=== PATIENT | female | born 1940 ===

== ENCOUNTER 2017-06-04 06:29 | Day surgery (SDC) | payer MEDICARE, BC ==
[2017-05-28 11:18] VITALS: BMI 31.1
[2017-06-04] MEDS ORDERED: Propofol 10 mg/ml Inj (20 ML) ONE ×2 (07:53→08:21)
[2017-06-04] MEDS ORDERED: Sodium Chloride 0.9% 1,000 ML IV SCH (09:00)
[2017-06-04 09:53] VITALS: BP 147/71; PULSE 75; RESP 20; TEMP 97.7; O2SAT 95
== END 2017-06-04 10:35 | disposition home or self-care (01) ==
LOC: ENDO 06:29
PROVIDERS: ATTEND Specialist
DX: K62.1 Rectal polyp (principal); D12.5 Benign neoplasm of sigmoid colon; K57.30 Diverticulosis of large intestine without perforation or abscess without bleeding; K64.8 Other hemorrhoids; E11.9 Type 2 diabetes mellitus without complications; I10 Essential (primary) hypertension; E78.5 Hyperlipidemia, unspecified; Z86.73 Personal history of transient ischemic attack (TIA), and cerebral infarction without residual deficits
CPT/HCPCS: 45385; 82948; 88305; J2704; J7040

== ENCOUNTER 2018-01-18 11:51 | Emergency (ER) | payer MEDICARE, BC ==
[2018-01-18 11:51] VITALS: BMI 31.1
[2018-01-18 12:32] VITALS: TEMP 98.3
[2018-01-18] MEDS ORDERED: Methocarbamol 500 MG Tab PO STA (13:06)
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
[2018-01-18 13:55] VITALS: BP 138/74; PULSE 89; RESP 18; O2SAT 95
--- NOTE | 2018-01-18 14:51 | CT ---
PROCEDURE: CT lumbar spine dated 8 01/18/2018. HISTORY: Low back pain COMPARISON: In comparison made with prior MRI lumbar spine dated 05/18/2017. TECHNIQUE: Axial computed tomography images were obtained of the lumbar spine without the use of intravenous contrast. Coronal and sagittal reformatted images were created and reviewed. Radiation dose: Total exam DLP = 1346.72. MGy-cm. This CT exam was performed using one or more of the following dose reduction techniques: Automated exposure control, adjustment of the mA and/or kV according to patient size, and/or use of iterative reconstruction technique. . FINDINGS: VERTEBRAE: No acute compression fractures no retropulsed fragments. Vertebral bodies exhibit normal stature. Vertebral bodies and facets normally aligned. DISCS/SPINAL CANAL/NEURAL FORAMINA: Multilevel degenerative spondylosis again noted. T12-L1: Disc space narrowing with vacuum disc phenomena. Small broad-based disc ridge complex the results in mild flattening of the ventral surface of the thecal sac however the overall central canal is adequate. Facets are mildly hypertrophic. Exit foramina adequate. L1-2: There is relatively adequate disc height. Tiny amount of vacuum phenomena present. Minimal broad-based disc ridge complex results in some flattening of the ventral surface of thecal sac however the overall central canal appears adequate. Facets are slightly overgrown. Exit foramina adequate. . L2-3: Disc space narrowing with vacuum disc phenomena. Small to medium-sized disc ridge complex extends into the proximal inferior margins of both exit foramina. Facets are hypertrophic and flavum are also buckled. . Bilateral lateral recess and mild central canal stenosis. L3-4: Moderate to significant disc space narrowing with vacuum disc phenomenon with broad based disc ridge complex associate with a smaller central and right parasagittal disc herniation component that extends into the proximal inferior margins of both exit foramina. There is moderate to fairly significant bilateral lateral recess and central canal stenosis. . . The facet joints are hypertrophic at this level. Flavum are also buckled. L4-L5: Disc space narrowing with vacuum disc phenomena. Small broad-based disc bulge ridge complex also extends into the proximal inferior margins of both exit foramina. Facets are hypertrophic and flavum buckled. Moderate -significant bilateral lateral recess and central canal stenosis. The exit foramina are stenotic on the right and marginal to slightly narrowed on the left. Facets hypertrophic and flavum are also buckled. . L5-S1: The mild posterior disc space narrowing with vacuum disc phenomena. Small central and bilateral disc ridge complex minimally flattens the ventral surfaces of the descending S1 nerve roots more so on the left side. Central canal appears adequate. Facets are mildly hypertrophic. The exit foramina are stenotic on the left and adequate on the right. . PARASPINAL SOFT TISSUES: Paraspinal soft tissues unremarkable. OTHER FINDINGS: None. IMPRESSION: No acute fractures. Multilevel degenerative spondylosis most notably affecting the L3-L4 and L4-L5 levels as described. See above discussion for additional details and findings at the remaining levels.
[2018-01-18 15:50] LABS: URINE BILIRUBIN NEGATIVE (NEGATIVE); URINE BLOOD NEGATIVE (NEGATIVE); URINE GLUCOSE (UA) NEGATIVE (NEGATIVE); URINE LEUKOCYTE ESTERASE NEGATIVE Leu/uL (NEGATIVE); URINE PROTEIN NEGATIVE mg/dL (<30 mg/dL); URINE UROBILINOGEN 0.2 E.U./dL (<1 E.U./dL)
[2018-01-18 15:51] LABS: URINE APPEARANCE CLEAR (CLEAR); URINE COLOR YELLOW (YELLOW)
== END 2018-01-18 16:25 | disposition home or self-care (01) ==
LOC: ED 11:51
DX: M47.896 Other spondylosis, lumbar region (principal)
CPT/HCPCS: 72131; 81003; 96372; 99283; J1885

== ENCOUNTER 2018-09-02 13:59 | Emergency (ER) | payer MEDICARE, BC ==
[2018-09-02 14:05] VITALS: BMI 31.4
[2018-09-02 14:16] VITALS: RESP 18; O2SAT 96
[2018-09-02 16:01] LABS: URINE BILIRUBIN NEGATIVE (NEGATIVE); URINE BLOOD NEGATIVE (NEGATIVE); URINE GLUCOSE (UA) NEGATIVE (NEGATIVE); URINE LEUKOCYTE ESTERASE MODERATE Leu/uL (NEGATIVE); URINE PROTEIN NEGATIVE mg/dL (<30 mg/dL); URINE UROBILINOGEN 0.2 E.U./dL (<1 E.U./dL)
[2018-09-02 16:03] LABS: URINE APPEARANCE CLEAR (CLEAR); URINE COLOR YELLOW (YELLOW)
[2018-09-02 16:04] LABS: URINE WBC 25 - 30 /hpf (0-6)
[2018-09-02 16:05] LABS: URINE AMORPHOUS SEDIMENT FEW /hpf; URINE BACTERIA MANY /hpf
[2018-09-02 16:35] LABS: ALB/GLOB RATIO 1.4 (1.1-1.8); ALBUMIN 4.3 g/dL (3.0-4.8); ALT/SGPT 14 U/L (7-56); AST/SGOT 17 U/L (14-36); BLOOD UREA NITROGEN 16 mg/dL (7-21); CALCIUM 10.9 mg/dL (8.4-10.5); GFR NON-AFRICAN AMERICAN > 60
[2018-09-02 16:36] LABS: INR 1.05; PARTIAL THROMBOPLASTIN TIME 31.5 Seconds (26.9-38.3); PROTHROMBIN TIME 11.7 SECONDS (9.4-12.5)
[2018-09-02 16:37] LABS: BASO # 0.04 K/mm3 (0.0-2.0); BASO % 0.5 % (0.0-3.0); EOS # 0.5 (0.0-0.7); EOS % 6.4 % (1.5-5.0); LYMPH # 2.6 (1.2-3.4); LYMPH % 36.2 % (22.0-35.0); MEAN CELL VOLUME 89.4 fl (80.0-105.0); MEAN CORPUSCULAR HEMOGLOBIN 28.1 pg (25.0-35.0); MEAN CORPUSCULAR HGB CONC 31.5 g/dl (31.0-37.0); MEAN PLATELET VOLUME 10.6 fl (7.0-11.0); MONO # 0.5 (0.1-0.6); MONO % 7.3 % (1.0-6.0); RBC 4.62 10^6/uL (3.5-6.1); RED CELL DISTRIBUTION WIDTH 12.4 % (11.5-14.5); WHITE BLOOD COUNT 7.3 10^3/uL (4.5-11.0)
[2018-09-02 16:46] LABS: TROPONIN I < 0.01 ng/mL
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
[2018-09-02 17:52] VITALS: BP 137/79; PULSE 86; TEMP 98.6
== END 2018-09-02 17:47 | disposition home or self-care (01) ==
LOC: ED 13:59
DX: E11.65 Type 2 diabetes mellitus with hyperglycemia (principal); N39.0 Urinary tract infection, site not specified; I10 Essential (primary) hypertension; Z87.891 Personal history of nicotine dependence; Z86.73 Personal history of transient ischemic attack (TIA), and cerebral infarction without residual deficits